=== PATIENT | male | born 1940 | race Caucasian/White ===

== ENCOUNTER 2022-07-19 14:43 | Outpatient (REF) | payer MEDICARE, BC, SELFPAY ==
[2022-07-19 15:51] LABS: Blood Urea Nitrogen 19 mg/dL (9-16); Estimated Glomerular Filt Rate 52
== END 2022-07-19 14:44 | disposition home or self-care (01) ==
LOC: HO.LAB 14:43
PROVIDERS: PCP Internal Medicine; Visit Provider Psychiatry & Neurology Neurology
DX: H93.A9 Pulsatile tinnitus, unspecified ear (principal); I10 Essential (primary) hypertension; R25.1 Tremor, unspecified
CPT/HCPCS: 36415; 82565; 84520

== ENCOUNTER 2022-10-11 10:33 | Outpatient (REF) | payer MEDICARE, BC, SELFPAY ==
--- NOTE | ~2022-10-11 | CT_ITS ---
EXAMINATION: CT ANGIOGRAM BRAIN, HEAD CLINICAL INFORMATION: 82-year-old with pulsatile tinnitus, unspecified ear. COMPARISON: None TECHNIQUE: Test bolus sequences followed by intravenous administration 75 mL of Omnipaque [address] angiography was performed in the axial plane from the skull base to the vertex. Precontrast and delayed postcontrast imaging of the head was also performed. The data was processed at the mechanical technologist workstation for generation of MIP sequences. Three-dimensional volume rendered reformatted images were also generated at an offline 3-D workstation. The degree of stenosis determined by NASCET criteria. This CT examination was performed using dose optimization techniques as appropriate, variously including the following: *Automated exposure control *Adjustment of mA and/or kV according to patient size (this includes techniques or standardized protocols for targeted exams where dose is matched to indication/reason for exam; i.e. extremities or head) *Use of iterative reconstruction technique DLP: 2537 mGy-cm FINDINGS: CT BRAIN: Mild nonspecific generalized diffuse brain parenchymal volume loss is noted with no evidence for intracranial hemorrhage, extra-axial fluid collection, space-occupying process or mass effect. Gomez-white matter differentiation is maintained. No acute territorial infarcts are identified. There are scattered small patchy zones of hypodensity in the subcortical white matter of both cerebral hemispheres which are nonspecific but could reflect minimal foci of chronic ischemic microangiopathy in a patient of this age. Brain parenchymal attenuation is otherwise within normal limits. No intracranial mass lesions, pathologic intracranial enhancement are identified. Bilateral carotid siphon calcifications are noted. There is normal opacification of the major dural venous sinuses and jugular bulbs. The bony structures are intact and the visualized airspaces are unopacified. Sinusoidal nasal septal deviation noted. The visualized extracranial soft tissue structures are partially obscured by dental amalgam artifact but otherwise grossly unremarkable. Minimal retained cerumen suspected in the left EAC. CTA: The visualized upper cervical ICAs demonstrate considerable tortuosity, right more than left but are otherwise normal in caliber and smoothly contoured. The intracranial ICAs are patent, with mural calcifications of both carotid siphons without significant focal stenosis or segmental occlusion. The left A1 segment is normal in caliber. The right A1 segment is nondominant. There is a dominant right A2 segment. The left A2 segment is smaller but not focally stenotic. Both M1 segments are normal in caliber and smoothly contoured. The MCA bifurcations and M2 branches appear within normal limits. The visualized upper cervical vertebral arteries are patent, with the left being slightly dominant. The intradural vertebral arteries are patent and normal in caliber with the left being slightly dominant. The posterior inferior cerebellar arteries are visualized bilaterally. Vertebrobasilar junction and basilar artery appear within normal limits. Superior cerebellar arteries are visualized bilaterally. Both resource director are patent and normal in caliber. There is a small posterior communicating artery seen on the left. No unusual vascularity is seen in the posterior fossa to suggest the presence of a dural arteriovenous fistula or other vascular malformation. No intracranial aneurysms are identified. CT/CT angio head IMPRESSION: 1. CT angiogram demonstrates no evidence for high-flow vascular malformation or dural arteriovenous fistula. No significant intracranial arterial stenosis or segmental occlusion. 2. 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 No acute intracranial process.
[2022-10-11] MEDS: iohexoL 350 MG/ML 100 ML INFUS..BTL IV (12:28)
[2022-10-12 07:19] LABS: Creatinine POC 0.8 mg/dL (0.5-1.4); GFR POC > 60
== END 2022-10-11 10:34 | disposition home or self-care (01) ==
LOC: HO.CT 10:33
PROVIDERS: PCP Internal Medicine; Visit Provider Psychiatry & Neurology Neurology
DX: H93.A9 Pulsatile tinnitus, unspecified ear (principal)
CPT/HCPCS: 70496; 82565; Q9967